=== PATIENT | male | born 1985 | race Caucasian/White ===

== ENCOUNTER 2022-09-23 20:22 | Emergency (ER) | payer SELFPAY ==
[~2022-09-23] VITALS: Ht 175.3 cm; Wt 74.0 kg
[2022-09-23 20:35] VITALS: BP 129/84
== END 2022-09-24 02:45 | disposition left against medical advice (07) ==
LOC: ER 20:37
DX: Z53.21 Procedure and treatment not carried out due to patient leaving prior to being seen by health care provider (principal)
CPT/HCPCS: 93005